=== PATIENT | male | born 1955 | race African-American/Black ===

== ENCOUNTER 2017-01-14 10:27 | Emergency (ER) | payer BC ==
[~2017-01-14] VITALS: Ht 175.3 cm; Wt 104.5 kg
[2017-01-14 10:33] VITALS: TEMP 98.3
[2017-01-14] MEDS ORDERED: FLEXERIL5 MG (10:36)
[2017-01-14] MEDS ORDERED: AMLODIPINE (10:36)
[2017-01-14] MEDS ORDERED: benzapril (10:36)
[2017-01-14 11:52] VITALS: BP 164/96; PULSE 64
[2017-01-14 13:41] LABS: CHLAMYDIA/TRACH by PCR Male NOT DETECTED; Neisseria Gon by PCR Male NOT DETECTED
== END 2017-01-14 12:02 | disposition home or self-care (01) ==
LOC: COL.ER 10:27
PROVIDERS: Physician Assistant
DX: N48.89 Other specified disorders of penis (principal); I10 Essential (primary) hypertension; Z87.891 Personal history of nicotine dependence
CPT/HCPCS: J0696

== ENCOUNTER 2017-03-16 09:05 | Emergency (ER) | payer BC ==
[~2017-03-16] VITALS: Ht 175.3 cm; Wt 100.0 kg
[~2017-03-16 09:05] MED LIST: AMLODIPINE; FLEXERIL5 MG; benzapril
[2017-03-16 09:13] VITALS: BP 171/98; PULSE 69; TEMP 97.9
[2017-03-16] MEDS ORDERED: LOTENSIN20 MG PO (09:15)
[2017-03-16] MEDS ORDERED: NORVASC 10MG10 MG PO (09:15)
[2017-03-16] MEDS ORDERED: MOBIC15 MG PO (09:16)
[2017-03-16] MEDS ORDERED: REVATIO20 MG PO (09:16)
[2017-03-16] MEDS ORDERED: FLAGYL500 MG PO (10:19)
[2017-03-16 11:50] LABS: CHLAMYDIA/TRACH by PCR Male NOT DETECTED; Neisseria Gon by PCR Male NOT DETECTED
== END 2017-03-16 11:22 | disposition home or self-care (01) ==
LOC: COL.ER 09:05
PROVIDERS: Physician Assistant
DX: R36.9 Urethral discharge, unspecified (principal); I10 Essential (primary) hypertension